=== PATIENT | female | born 1975 | race Caucasian/White ===

== ENCOUNTER → 2018-01-15 | Outpatient (CLI) | payer OTHER ==
[~2018-01-15] MED LIST: IBUP-1223 PO; PROM25SU35 PR; SCOP1PAT11 TD
[2018-01-15 16:27] LABS: T4 (THYROXINE) 9.1 mcg/dL (4.8-13.9); THYROID STIMULATING HORMONE 1.74 mIU/L (0.358-3.740)
== END | disposition home or self-care (01) ==
LOC: CFH 12:35
PROVIDERS: ATTEND Internal Medicine
DX: Z00.01 Encounter for general adult medical examination with abnormal findings (principal); Z13.220 Encounter for screening for lipoid disorders; F41.9 Anxiety disorder, unspecified; E28.2 Polycystic ovarian syndrome; I83.899 Varicose veins of unspecified lower extremity with other complications; L70.8 Other acne; R00.2 Palpitations; Z63.4 Disappearance and death of family member
CPT/HCPCS: 36415; 82533; 82672; 83001; 83002; 84144; 84402; 84403; 84436; 84443; 84480